=== PATIENT | female | born 1960 ===

== ENCOUNTER 2019-05-24 17:39 | Emergency (ER) | payer OTHER ==
[~2019-05-24] VITALS: Ht 172.7 cm; Wt 108.9 kg
[2019-05-24] MEDS ORDERED: SYNTHROID100 MCG (17:44)
[2019-05-24] MEDS ORDERED: AMOX-CLAV 875-1 EACH PO (19:23)
== END 2019-05-24 19:56 | disposition home or self-care (01) ==
LOC: ER 17:39
DX: H66.91 Otitis media, unspecified, right ear (principal)